=== PATIENT | female | born 1955 | race Two or more races ===

== ENCOUNTER 2021-06-14 12:45 | Inpatient (IN) | payer OTHER ==
[~2021-06-14] VITALS: Ht 152.4 cm; Wt 81.6 kg
[2021-06-21] MEDS ORDERED: ATORVASTATIN CA20 MG PO (08:10)
== END 2021-06-24 10:50 | disposition home or self-care (01) | DRG 743 ==
LOC: O/R 06-20 08:46 → OB/GYN 06-20 12:45
PROVIDERS: ADMIT Specialist; ATTEND Specialist
PROC: 0UT24ZZ Resection of Bilateral Ovaries, Percutaneous Endoscopic Approach (ICD-10-PCS; 2021-06-20)
PROC: 0UT74ZZ Resection of Bilateral Fallopian Tubes, Percutaneous Endoscopic Approach (ICD-10-PCS; 2021-06-20)
PROC: 07BC4ZZ Excision of Pelvis Lymphatic, Percutaneous Endoscopic Approach (ICD-10-PCS; 2021-06-20)
PROC: 0UT94ZZ Resection of Uterus, Percutaneous Endoscopic Approach (ICD-10-PCS; principal; 2021-06-20 14:00)
PROC: 30233N1 Transfusion of Nonautologous Red Blood Cells into Peripheral Vein, Percutaneous Approach (ICD-10-PCS; 2021-06-22)
PROC: 3E0F7SF Introduction of Other Gas into Respiratory Tract, Via Natural or Artificial Opening (ICD-10-PCS; 2021-06-22)
DX: N80.0 Endometriosis of uterus (principal); D64.9 Anemia, unspecified; N72 Inflammatory disease of cervix uteri; D25.1 Intramural leiomyoma of uterus; N80.1 Endometriosis of ovary; N83.8 Other noninflammatory disorders of ovary, fallopian tube and broad ligament; N84.0 Polyp of corpus uteri